=== PATIENT | male | born 1995 | race Caucasian/White ===

== ENCOUNTER 2017-07-11 02:10 | Emergency (ER) | payer BC ==
[~2017-07-11] VITALS: Ht 193 cm; Wt 163.3 kg
[~2017-07-11 02:10] MED LIST: SULF1TAB24 PO; TRAM-48 PO
[2017-07-11 02:31] VITALS: BP 159/90
[2017-07-11] MEDS ORDERED: NAPR500T PO (03:05)
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
[2017-07-11] MEDS ORDERED: NAPROXEN 500 MG TABLET PO ONE (03:15)
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
== END 2017-07-11 03:25 | disposition home or self-care (01) ==
LOC: ER 02:10
DX: S62.355A Nondisplaced fracture of shaft of fourth metacarpal bone, left hand, initial encounter for closed fracture (principal); F17.210 Nicotine dependence, cigarettes, uncomplicated; W22.8XXA Striking against or struck by other objects, initial encounter; Y93.39 Activity, other involving climbing, rappelling and jumping off; Y92.89 Other specified places as the place of occurrence of the external cause; Y99.8 Other external cause status
CPT/HCPCS: 29125; 73130; 99284-25

== ENCOUNTER 2017-10-16 00:26 | Emergency (ER) | payer BC ==
[~2017-10-16] VITALS: Ht 193 cm; Wt 158.8 kg
[~2017-10-16 00:26] MED LIST changes: +NAPR-683 PO
[2017-10-16] MEDS ORDERED: LIDOCAINE 2%/EPI 1:100,000 20 ML VIAL. INJ ONE (01:30)
[2017-10-16] MEDS ORDERED: MORPHINE SULFATE 10 MG/ML VIAL. IM ONE ×2 (01:30→02:30)
[2017-10-16] MEDS ORDERED: CEPHALEXIN 250 MG CAPSULE. PO ONE (01:30)
[2017-10-16] MEDS ORDERED: LIDOCAINE 1%/EPI 1:100,000 20 ML VIAL. INJ ONE (01:30)
[2017-10-16] MEDS ORDERED: ONDANSETRON ODT 4 MG TAB.RAPDIS. PO ONE (01:30)
[2017-10-16] MEDS ORDERED: TETANUS AND DIPHTHERIA TOX/PF 0.5 ML DISP.SYRIN. VAX IM ONE (01:30)
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
[2017-10-16 02:44] VITALS: BP 144/70
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
== END 2017-10-16 02:48 | disposition home or self-care (01) ==
LOC: ER 00:26 → EEVIPCON 00:26 → ER 02:48
DX: S62.307A Unspecified fracture of fifth metacarpal bone, left hand, initial encounter for closed fracture (principal); S61.402A Unspecified open wound of left hand, initial encounter; F12.10 Cannabis abuse, uncomplicated; Y24.9XXA Unspecified firearm discharge, undetermined intent, initial encounter; Y93.89 Activity, other specified; Y99.8 Other external cause status; Y92.89 Other specified places as the place of occurrence of the external cause
CPT/HCPCS: 29125; 73130; 90471; 90714; 96372; 99284; J2270; J3490; Q0162

== ENCOUNTER 2019-02-15 00:51 | Emergency (ER) | payer BC ==
[~2019-02-15] VITALS: Ht 193 cm; Wt 163.3 kg
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
[2019-02-15 01:58] VITALS: BP 117/55
== END 2019-02-15 02:00 | disposition home or self-care (01) ==
LOC: ER 00:51
DX: S00.03XA Contusion of scalp, initial encounter (principal); R05 Cough; W18.09XA Striking against other object with subsequent fall, initial encounter; Y93.89 Activity, other specified; Y92.89 Other specified places as the place of occurrence of the external cause; Y99.8 Other external cause status
CPT/HCPCS: 99284